=== PATIENT | female | born 1935 | race Caucasian/White ===

== ENCOUNTER 2018-03-25 15:33 | Observation (INO) ==
[2018-03-25] MEDS ORDERED: SALINE FLUSH 10ml SYRINGE IVF PRN (15:42)
--- NOTE | 2018-03-25 15:57 | CT Scan Report ---
EXAM: CT head/brain wo con HISTORY: Unilateral weakness COMPARISON: CT head dated 07/19/2011. PROCEDURE: CT images were obtained throughout the head without contrast enhancement. The current CT scan was performed using radiation dose-reduction techniques. FINDINGS: No intracranial hemorrhage or acute territorial infarct is evident. Generalized age-related cerebral is present with no evidence of a space-occupying mass or shift of midline structures. The bony calvaria are intact. The visualized paranasal sinuses and mastoid air cells are clear. The orbital contents are within normal limits. IMPRESSION: No acute intracranial process. .
--- NOTE | 2018-03-25 16:06 | Emergency Department Report ---
Neuro HPI - General Chief Complaint: Weakness Stated Complaint: L SIDED WEAKNESS Time Seen by Provider: 03/25/18 15:38 Source: patient, RN notes reviewed, old records reviewed Mode of arrival: ambulatory Limitations: no limitations - History of Present Illness HPI Narrative: 83yo woman presents to the ER for evaluation of left-sided weakness. Pt has had similar sx x3 before; these were dx'ed as TIA's. Pt has established with Dr. Heck; she was at his office earlier today. Pt then went to her dentist today ; had recurrent left-sided 'numbness' sx without weakness or dysarthria/ dysphagia at 2-2:30 today. Onset (ago): hour(s) Time: 1400 Time Estimated: Yes Location: left face, left arm, left leg History of same: Yes Severity: mild Quality: numb Relieving factors: none Exacerbating factors: none Context: sudden onset On Anticoagulants: Yes Associated symptoms: denies other symptoms Treatments Prior to Arrival: Aspirin - Related Data Home Medications: Home Medications Medication Instructions Recorded Confirmed Norvasc (amlodipine) 5 mg tablet 5 mg PO DAILY 30 Days #30 tab 03/26/17 03/25/18 Aspirin [Ecotrin] 81 mg PO DAILY 03/25/18 03/25/18 Carvedilol 3.125 mg PO BID 03/25/18 03/25/18 Duloxetine [Cymbalta] 30 mg PO DAILY 03/25/18 03/25/18 Allergies/Adverse Reactions: Allergies Allergy/AdvReac Type Severity Reaction Status Date / Time codeine Allergy Intermediate SWELLING Verified 03/25/18 13:52 acetaminophen Allergy Verified 03/25/18 13:52 amoxicillin Allergy VOMITTING Verified 03/25/18 13:52 AND DIARRHEA cyclobenzaprine Allergy Verified 03/25/18 13:52 hydrocodone Allergy Verified 03/25/18 13:52 tramadol Allergy Verified 03/25/18 13:52 propoxyphene napsylate Allergy Uncoded 03/25/18 13:52 Review of Systems All systems: reviewed and negative except as stated Neurological: Reports: as per HPI, numbness. Denies: headache, weakness, paresthesias, confusion, abnormal gait, vertigo [facility] Medical History Anxiety (Chronic Medical) High blood pressure (Chronic Medical) Right optic neuropathy (Chronic Medical) TIA (transient ischemic attack) (Chronic Medical) Surgical History: Heart cathers x3. hysterectomy. colonscopy. prolapsed bladder Family History: Family History (Last Reviewed 03/25/18 @ 13:52 by Demi Celaya [facility]) Father Lymphoma Mother Dementia - Social History Smoking status: Never smoker Substance use type: does not use Alcohol intake frequency: holidays/special occasions only Current occupational status: retired Physical Exam - Limitations Limitations: no limitations - General General appearance: alert, in no apparent distress, obese - Head Head exam: atraumatic, normocephalic, normal inspection - Eye Eye exam: Present: normal appearance, PERRL, EOMI. Absent: scleral icterus - ENT ENT exam: Present: normal exam, normal oropharynx, mucous membranes moist, normal external ear exam - Neck Neck exam: Present: normal inspection, full ROM, trachea midline. Absent: tenderness, lymphadenopathy - Chest Chest inspection: Present: normal inspection, symmetric chest wall rise. Absent : tenderness, rash - Respiratory Respiratory exam: Present: normal lung sounds bilaterally. Absent: respiratory distress, wheezes, stridor, prolonged expiratory phase, crackles - Cardiovascular Cardiovascular exam: Present: regular rate, normal rhythm, normal heart sounds. Absent: rubs, gallop, clicks - Abdominal Exam Abdominal exam: Present: soft, normal bowel sounds. Absent: distention, tenderness, guarding, rebound, rigidity - Extremities Exam Extremities exam: Present: normal inspection, full ROM, normal capillary refill. Absent: tenderness, pedal edema - Skin Skin exam: Present: warm, dry, intact. Absent: rash - Neurological Exam Neurological exam: Present: alert, oriented X3, CN II-XII intact, normal gait, reflexes normal - Expanded Neurological Exam Patient oriented to: Present: person, place, time Speech: Present: fluid speech Cranial nerves: Normal: EOM function (II, III, IV, ), facial sensation (V), facial palsy (VII), gag reflex (IX), spinal accessory function (XI), tongue deviation (XII) Cerebellar function: Normal: finger to nose, heel to story Cerebellar function: normal gait Motor strength - LUE: 5/5 Motor strength - RUE: 5/5 Motor strength - LLE: 5/5 Motor strength - RLE: 5/5 Upper motor neuron exam: Absent bilaterally: ekaterina neglect, pronator drift, Babinski sign, sensory extinction DTR: 2+: patellar (L), patellar (R) Coma scale eye opening: spontaneous Coma scale motor response: obeys commands Coma scale verbal response: oriented Coma scale total: 15 - Psychiatric Psychiatric exam: Present: normal affect, normal mood Course - Consultations Consultation #1: Hospitalist: Will admit for further eval/treatment. Time: 17:30 Vital Signs Temperature 97.9 F 03/25/18 15:30 Pulse Rate 68 03/25/18 15:30 Respiratory Rate 20 03/25/18 15:30 Blood Pressure 173/84 H 03/25/18 15:30 Pulse Oximetry 97 03/25/18 15:30 Temperature 97.9 F 03/25/18 15:46 Pulse Rate 68 03/25/18 15:46 Respiratory Rate 20 03/25/18 15:46 Blood Pressure 173/84 H 03/25/18 15:44 Pulse Oximetry 97 03/25/18 15:46 Neuro Symptoms/Deficit - Differential Diagnosis Likely: carpal tunnel syndrome, delirium, subarachnoid hemorrhage, peripheral neuropathy, cerebrovascular accident, transient cerebral ischemia - Medical Records Attestation: I reviewed the patient's medical records. - Lab Data Attestation: I reviewed the patient's lab results. Result diagrams: 03/25/18 16:21 03/25/18 16:21 - Radiology Data Attestation: I reviewed the patient's radiology results. CT Head: FINDINGS: No intracranial hemorrhage or acute territorial infarct is evident. Generalized age-related cerebral is present with no evidence of a space-occupying mass or shift of midline structures. The bony calvaria are intact. The visualized paranasal sinuses and mastoid air cells are clear. The orbital contents are within normal limits. IMPRESSION: No acute intracranial process. - EKG Data EKG #1 EKG attestation: Yes: I reviewed and interpreted this EKG. EKG shows normal: sinus rhythm, axis, intervals, ST-T waves Rate: normal [place]/QRS: RBBB Disposition Clinical Impression: TIA (transient ischemic attack) Qualifiers: Transient cerebral ischemia type: unspecified Qualified Code(s): G45.9 - Transient cerebral ischemic attack, unspecified [place]position: 02 [place] [facility] [place] Language: Malag[place] Condition: Improved Prescriptions: No Action Carvedilol 3.125 mg PO BID Aspirin [Ecotrin] 81 mg PO DAILY Duloxetine [Cymbalta] 30 mg PO DAILY Norvasc (amlodipine) 5 mg tablet 5 mg PO DAILY 30 Days #30 tab Referrals: Silvano Morris MD [Primary Care Provider] - Time of Disposition: 17:46 - Seen By: physician
[2018-03-25] MEDS ORDERED: PROCHLORPERAZINE 10 MG/2 ML INJECTION IVP PRN (18:39)
[2018-03-25 18:42] VITALS: BMI 29.8
[2018-03-25] MEDS ORDERED: BISACODYL 10 MG SUPPOSITORY RECTALLY PRN (19:52)
--- NOTE | 2018-03-25 20:01 | History & Physical Report ---
History of Present Illness Date: 03/25/18 Chief complaint: Left facial and arm numbess HPI: Mrs Forrester is an 83 y/o female who presents to [facility] ED for evaluation of left facial and arm numbness. Has been having these symptoms for about 2 years-will come and go for no apparent reason. Dose take ASA for stroke prevention. Was seen by Dr Heck today for neurological follow up-reports that she had 3 episode recently. He recommended increasing ASA to 81mg BID and scheduled MR brain and MR angiogram for head and neck. Patient had dental appointment after neurological visit. Developed another episode of numbness to face/arm. No preceding symptoms-no palpitation, nausea, sweats, diaphoresis. No other neurological changes - vision/hearing/speech normal and no difficulty moving ext. No recent trauma or injury (reports trauma to back of head about 3 months ago - but having these current symptoms before then). Has been in typical state of health-no recent illness. Breathing well. No chest pain. Appetite stable. Bowels stable. With return of symptoms, presents to ED for evaluation. CT head unremarkable. Lab unremarkable. Numbness starting to resolve in ED. Placed in OBS for further evaluation and treatment. Review of Systems - Constitutional Constitutional: Absent: anorexia, chills, headache(s) - EENMT Eyes: Absent: blurry vision, change in vision, diplopia, loss of vision, pain Ears: Absent: ear discharge, ear pain, tinnitus Balance: Absent: vertigo, ataxia - Cardiovascular Cardiovascular: Absent: chest pain, palpitations, dyspnea on exertion, edema - Respiratory Respiratory: Absent: cough, dyspnea, dyspnea on exertion, wheezing, chest congestion - Gastrointestinal Gastrointestinal: Present: constipation (Some chronic slowing of stools). Absent: abdominal pain, change in bowel habits, diarrhea, vomiting - Genitourinary Genitourinary: Absent: difficulty urinating, urinary urgency - Musculoskeletal Musculoskeletal: Absent: muscle cramps, muscle weakness, myalgias, neck pain - Neurological Neurological: Present: as per HPI. Absent: abnormal speech, dizziness, focal weakness, headache(s), loss of vision, tremor(s), vertigo, weakness - Psychiatric Psychiatric: Absent: depression, mood swings - Allergic/Immunologic Allergic/Immunologic: Absent: lip swelling Past Medical History Medical History: Medical History Anxiety High blood pressure Right optic neuropathy TIA (transient ischemic attack) Surgical History: Heart cathers x3. hysterectomy. colonscopy. prolapsed bladder Family History: Family History (Last Reviewed 03/25/18 @ 13:52 by JESUS MANUEL Walker) Father Lymphoma Mother Dementia Family History: As Above - Social History Smoking status: Never smoker Alcohol intake frequency: other (Will have 1 glass of wine daily) Current occupational status: retired Current residence: Apartment/Private Home Social history: Dr Morris PCP Medications Home Medications Medication Instructions Recorded Confirmed Type Norvasc (amlodipine) 5 mg tablet 5 mg PO DAILY 30 Days #30 tab 03/26/17 History Aspirin [Ecotrin] 81 mg PO DAILY 03/25/18 03/25/18 History Carvedilol 3.125 mg PO BID 03/25/18 03/25/18 History Duloxetine [Cymbalta] 30 mg PO DAILY 03/25/18 03/25/18 History Allergies Allergy/AdvReac Type Severity Reaction Status Date / Time codeine Allergy Intermediate SWELLING Verified 03/25/18 13:52 acetaminophen Allergy Verified 03/25/18 13:52 amoxicillin Allergy VOMITTING Verified 03/25/18 13:52 AND DIARRHEA cyclobenzaprine Allergy Verified 03/25/18 13:52 hydrocodone Allergy Verified 03/25/18 13:52 tramadol Allergy Verified 03/25/18 13:52 propoxyphene napsylate Allergy Uncoded 03/25/18 13:52 Exam Vital Signs: Temperature 96.0 F L 03/25/18 18:40 Pulse Rate 64 03/25/18 18:40 Respiratory Rate 18 03/25/18 18:40 Blood Pressure 162/88 H 03/25/18 18:40 Pulse Oximetry 98 03/25/18 18:40 Height/Weight/BMI: Height 1.6 m Weight 76.5 kg Body Mass Index 29.8 - Constitutional Present: well nourished, well developed, average body habitus, cooperative - Routine HEENT Exam Head: Present: normocephalic, atraumatic Eye: Present: EOMI, PERRL, normal accommodation ENT: Present: mucous membranes moist - Routine Neck Exam Present: supple, full ROM, trachea midline. Absent: carotid bruit - Routine Respiratory Exam Present: CTA bilaterally. Absent: rales, respiratory distress, rhonchi, stridor , wheezes, crackles - Routine Cardiovascular Exam Present: RRR, no murmur - Routine Abdominal Exam Present: soft, normoactive bowel sounds, non distended, non tender. Absent: guarding - Routine Extremities Exam Present: no edema, pulses intact. Absent: cyanosis, clubbing - Routine Skin Exam Present: intact, dry, warm. Absent: pallor, mottling - Routine Neurological Exam Present: alert, oriented X3, CN II-XII intact, moving all extremities, vision grossly intact, hearing grossly intact, facial asymmetry. Absent: motor deficit , altered mental status - Routine Psychiatric Exam Present: normal affect, normal thought process, cooperative, good insight, good judgment Results - Labs CBC & Chem 7: 03/25/18 16:21 03/25/18 16:21 Assessment and Plan (1) Numbness and tingling of left side of face Current visit: Yes Status: Acute (2) TIA (transient ischemic attack) Current visit: Yes Status: Acute Assessment and Plan: Assessment Numbness of left face and arm - improving; suspect TIA HTN AO Idiopathic neuropathy Mild chronic constipation Plan OBS at [facility] for further monitoring and treatment Tele to monitor for cardiac rhythm disturbances. Will consult with PT/OT/Speech for functional evaluation. Obtain ECHO cardiogram to help rule out embolic source. Obtain MR Brain without contrast and MR angiogram of Head and Neck without contrast as per neurology. Will initiate Plavix with ASA for stroke prevention. Check Fasting lipid profile. IVF of 1/2NS with 20KCl to help maintain hydration. Continue home medications. Discussed code status with patient. Requests DNR. Order written. Care to return to Dr Morris at time of discharge from [facility]. DVT Prophylaxis: SCD's Resuscitation Status: Do Not Resuscitate - Time spent with patient Time with patient PN: 50 minutes - Physician Narrative Physician: Gomez Hernandez MD Narrative: Date: 03/25/18 Time: 1952 Hospital Course Summary Disclaimer: The visit summary below is not to be considered part of the above Progress Note. Hospital Course: 03/25/18 OBS at [facility] for further monitoring and treatment. Tele to monitor for cardiac rhythm disturbances. Will consult with PT/OT/Speech for functional evaluation. Obtain ECHO cardiogram to help rule out embolic source. Obtain MR Brain without contrast and MR angiogram of Head and Neck without contrast as per neurology. Will initiate Plavix with ASA for stroke prevention. Check Fasting lipid profile. IVF of 1/2NS with 20KCl to help maintain hydration. Continue home medications. Discussed code status with patient. Requests DNR. Order written. Care to return to Dr Morris at time of discharge from [facility].
[2018-03-25] MEDS: CARVEDILOL 3.125 MG TABLET PO SCH (20:36)
[2018-03-25] MEDS: CLOPIDOGREL 75 MG TABLET PO SCH (20:36)
[2018-03-25] MEDS: 1/2 NS with KCL 20mEq 1,000 ML IV SCH (20:36)
[2018-03-26 07:41] VITALS: RESP 17
[2018-03-26] MEDS ORDERED: DULOXETINE 30 MG CAPSULE PO SCH (09:00)
[2018-03-26] MEDS ORDERED: AMLODIPINE 5 MG TABLET PO SCH (09:00)
[2018-03-26] MEDS ORDERED: ASPIRIN *EC* 81 MG TABLET PO SCH (09:00)
[2018-03-26] MEDS: CARVEDILOL 3.125 MG TABLET PO SCH ×2 (09:07→17:59)
[2018-03-26] MEDS: CLOPIDOGREL 75 MG TABLET PO SCH (09:07)
[2018-03-26] MEDS: 1/2 NS with KCL 20mEq 1,000 ML IV SCH (09:07)
[2018-03-26] MEDS ORDERED: GADOTERIDOL 279.3mg/ml - 15ml vial IVP ONE (12:18)
[2018-03-26] MEDS ORDERED: NS 50 ML ONE (12:18)
[2018-03-26] MEDS ORDERED: SALINE FLUSH 10ml SYRINGE ONE (12:18)
--- NOTE | 2018-03-26 15:02 | Magnetic Resonance Report ---
Indication: TIAs MR head/brain/ang head wo con: Comparison: MRI head 03/25/2018 Technique: Patient is scanned T1 and T2-weighted image sequences as well as with the [id number] MRA imaging of the [place]. Findings: Patient demonstrates only visualized flow in the left vertebral on the images provided. No occlusive change identified in the anterior circulation. A1 and M1 segments are visualized. Posterior circulation showed both posterior inferior cerebellar arteries visualized. No stenosis identified in either carotid siphon region. Intracranial imaging shows generalized atrophy and deep white matter changes. The diffusion weighted image sequences did not suggest recent vascular insult. FLAIR sequence T2-weighted imaging showed moderate deep white matter small vessel changes bilaterally with slightly greater on the right. No suggestion of recent hemorrhage or mass effect is seen. Patient shows generalized atrophy and deep white matter changes slightly greater in the centrum some mild volume the right. No definitive flow in the right vertebral artery. Evaluation of the neck perhaps with carotid ultrasound may be worthwhile to see if there is visualized right vertebral flow. No acute intracranial findings were identified. The anterior circulation was intact with A1 and M1 segments both well visualized. No marked asymmetry and the lenticulostriate vessels appreciated. Impression: 1. Chronic deep white matter changes and generalized atrophy without suggestion of acute vascular insult. The diffusion weighted images showed no recent stroke. 2. Patient showed what appear to be dominant flow in the left vertebral with no good clear visualization of the right vertebral on the images provided. Ultrasound evaluation the neck may be a consideration to assess the carotid and vertebral flow. 3. No acute intracranial anterior circulation abnormality appreciated. .
--- NOTE | 2018-03-26 15:10 | Echocardiogram ---
DATE OF PROCEDURE: March 26, 2018 REFERRING PHYSICIAN: Dr. Gomez Hernandez This is a two-dimensional echo with spectral Doppler, color-flow and M-mode. It was obtained in a patient with possible TIA. Left atrial dimension is normal. Left ventricle end-diastolic dimension is normal. Left ventricle wall thickness is normal. LV systolic function is normal with ejection fraction of 70%. Right atrium is normal. Right ventricle is normal. Aortic root dimension is normal. Mitral valve is morphologically normal with mild mitral regurgitation. Aortic valve is a trileaflet structure with no stenosis. Mild aortic insufficiency is present. Tricuspid valve shows mild tricuspid regurgitation with normal estimated pulmonary artery systolic pressure of 28. Pulmonary valve shows no pulmonary insufficiency. There is no pericardial effusion. Grossly there is no intracardiac thrombus or mass. IMPRESSION 1. Normal LV systolic function with ejection fraction of about 70%. 2. Mild aortic insufficiency. 3. Mild tricuspid regurgitation with normal estimated pulmonary artery systolic pressure of 28. 4. Mild mitral regurgitation. 5. Grossly no intracardiac thrombus or mass. [facility]
[2018-03-26 15:12] VITALS: BP 146/67; O2SAT 95
[2018-03-26 16:16] VITALS: TEMP 95.6
--- NOTE | 2018-03-26 16:51 | Progress Note ---
- Date 03/26/18 Subjective: F/U: Left sided facial/arm numbness - TIA Doing well today. Symptoms resolved and not returned. Breathing well. Eating well. Tolerated procedures. Objective Vital signs: Temperature 95.6 F L 03/26/18 15:11 Pulse Rate 68 03/26/18 15:11 Respiratory Rate 17 03/26/18 15:11 Blood Pressure 146/67 H 03/26/18 15:11 Pulse Oximetry 95 03/26/18 15:11 Height/Weight/BMI: Height 1.6 m Weight 77.3 kg Body Mass Index 29.8 - Constitutional Present: no acute distress, well nourished, well developed, average body habitus , cooperative - Routine HEENT Exam Head: Present: normocephalic, atraumatic Eye: Present: EOMI, PERRL ENT: Present: mucous membranes moist - Routine Respiratory Exam Present: CTA bilaterally. Absent: respiratory distress, rhonchi, stridor, wheezes, crackles - Routine Cardiovascular Exam Present: RRR, no murmur - Routine Abdominal Exam Present: soft, normoactive bowel sounds, non distended, non tender. Absent: guarding - Routine Extremities Exam Present: no edema, pulses intact. Absent: cyanosis, clubbing - Routine Musculoskeletal Exam Musculoskeletal: Present: no clubbing or cyanosis, normal strength - Routine Skin Exam Present: intact, dry, warm - Routine Neurological Exam Present: alert, oriented X3, CN II-XII intact, moving all extremities, vision grossly intact, hearing grossly intact, normal speech. Absent: motor deficit, altered mental status - Routine Psychiatric Exam Present: normal affect, normal thought process, cooperative Results - Labs CBC & Chem 7: 03/26/18 04:06 03/26/18 04:06 Assessment and Plan (1) Numbness and tingling of left side of face Current visit: Yes Status: Acute (2) TIA (transient ischemic attack) Current visit: Yes Status: Acute Assessment and Plan: Assessment Numbness of left face and arm - improving; suspect TIA HTN AO Idiopathic neuropathy Mild chronic constipation Plan Clinically doing well. No recurrence of symptoms or other neurological problems developed. MR Brain not showing evidence for acute stroke. MR angiogram pending. ECHO without significant finding. Lipid profile reviewed with patient - Normal. Did discuss about addition of statin medication (simvastatin 40mg night) for CV protection. Discussed possible side effects. Will defer initiation of statin to PCP. Discussed MR finding with Dr Heck (who reviewed them). He does concur with Plavix over ASA to help decreased CV risk. As medically stable, will discharge to home. Plavix 75mg daily in place of ASA. Continue prior home medications. F/U with Dr Morris in 1 week. See orders for details. Case discussed with Dr Heck & Dr Morris. Time spent with care and discharge greater than 30 minutes. DVT Prophylaxis: SCD's Resuscitation Status: Do Not Resuscitate - Physician Narrative Physician: Gomez Hernandez MD Narrative: Date: 03/26/18 Time: 1649 Hospital Course Summary Disclaimer: The visit summary below is not to be considered part of the above Progress Note. Hospital Course: 03/25/18 OBS at [facility] [place] further monitoring and treatment. Tele to monitor for cardiac rhythm disturbances. Will consult with PT/OT/Speech for functional evaluation. Obtain ECHO cardiogram to help rule out embolic source. Obtain MR Brain without contrast and MR angiogram of Head and Neck without contrast as per neurology. Will initiate Plavix with ASA for stroke prevention. Check Fasting lipid profile. IVF of 1/2NS with 20KCl to help maintain hydration. Continue home medications. Discussed code status with patient. Requests DNR. Order written. Care to return to Dr Morris at time of discharge from [facility]. 03/26/18 Clinically doing well. No recurrence of symptoms or other neurological problems developed. MR Brain not showing evidence for acute stroke. MR angiogram pending. ECHO without significant finding. Lipid profile reviewed with patient - Normal. Did discuss about addition of statin medication (simvastatin 40mg night) for CV protection. Discussed possible side effects. Will defer initiation of statin to PCP. Discussed MR finding with Dr Heck (who reviewed them). He does concur with Plavix over ASA to help decreased CV risk. As medically stable, will discharge to home. Plavix [address]mg [address] of ASA. Continue prior home medications. F/U with Dr Morris in 1 week. See orders for details.
[2018-03-26 16:55] VITALS: PULSE 66
--- NOTE | 2018-03-26 17:13 | Discharge Summary ---
Discharge Information Date of admission: 03/25/18 18:09 Anticipated date of discharge: 03/26/18 Attending Physician: Gomez Hernandez MD Primary care physician: Silvano Morris MD Consults: PT/OT/Speech - Discharge Diagnosis (1) Numbness and tingling of left side of face Status: Acute (2) TIA (transient ischemic attack) Status: Acute Discharge diagnosis Numbness of left face and arm - improving; suspect TIA Associated conditions and complications HTN Osteoarthritis Idiopathic neuropathy Mild chronic constipation - Procedures Procedures: Date of Exam: 03/26/18 Type of Exam: US ECHO Doppler complete Left atrial dimension is normal. Left ventricle end-diastolic dimension is normal. Left ventricle wall thickness is normal. LV systolic function is normal with ejection fraction of 70%. Right atrium is normal. Right ventricle is normal. Aortic root dimension is normal. Mitral valve is morphologically normal with mild mitral regurgitation. Aortic valve is a trileaflet structure with no stenosis. Mild aortic insufficiency is present. Tricuspid valve shows mild tricuspid regurgitation with normal estimated pulmonary artery systolic pressure of 28. Pulmonary valve shows no pulmonary insufficiency. There is no pericardial effusion. Grossly there is no intracardiac thrombus or mass. IMPRESSION 1. Normal LV systolic function with ejection fraction of about 70%. 2. Mild aortic insufficiency. 3. Mild tricuspid regurgitation with normal estimated pulmonary artery systolic pressure of 28. 4. Mild mitral regurgitation. 5. Grossly no intracardiac thrombus or mass. - Laboratory Labs: Admit Lab 03/25/18 16:21 WBC 6.8 Hgb 14.5 Hct 42.5 MCV 92.6 Plt Count 146 Neut % (Auto) 60.4 Lymph % (Auto) 30.2 [place] % (Auto) 7.4 Eos % (Auto) 1.6 Baso % (Auto) 0.3 Admit Lab 03/25/18 16:21 Sodium 145 Potassium 3.7 Chloride 111 H Carbon Dioxide 21 L Anion Gap 13 BUN 23.0 H Creatinine 0.5 L GFR Calculation 118 BUN/Creatinine Ratio 46 H Glucose 91 Calculated Osmolality 283 H Calcium 9.8 Total Bilirubin 0.50 AST 24 ALT 17 Alkaline Phosphatase 81 Total Protein 7.5 Albumin 4.2 Globulin 3.3 Albumin/Globulin Ratio 1.3 Specimen Hemolysis < 15 Lipid Profile 03/26/18 04:06 Triglycerides 157 H Cholesterol 112 L LDL Cholesterol, Calc 36.6 L VLDL Cholesterol 31.4 H HDL Cholesterol 44 Cholesterol/HDL Ratio 2.5 03/26/18 04:06 03/26/18 04:06 - Radiology Radiology: Date of Exam: 03/25/18 Type of Exam: CT head/brain wo con FINDINGS: No intracranial hemorrhage or acute territorial infarct is evident. Generalized age-related cerebral is present with no evidence of a space- occupying mass or shift of midline structures. The bony calvaria are intact. The visualized paranasal sinuses and mastoid air cells are clear. The orbital contents are within normal limits. IMPRESSION: No acute intracranial process. Date of Exam: 03/26/18 Type of Exam: MR head/brain/ang head wo con Findings: Patient demonstrates only visualized flow in the left vertebral on the images provided. No occlusive change identified in the anterior circulation. A1 and M1 segments are visualized. Posterior circulation showed both posterior inferior cerebellar arteries visualized. No stenosis identified in either carotid siphon region. Intracranial imaging shows generalized atrophy and deep white matter changes. The diffusion weighted image sequences did not suggest recent vascular insult. FLAIR sequence T2-weighted imaging showed moderate deep white matter small vessel changes bilaterally with slightly greater on the right. No suggestion of recent hemorrhage or mass effect is seen. Patient shows generalized atrophy and deep white matter changes slightly greater in the centrum some mild volume the right. No definitive flow in the right vertebral artery. Evaluation of the neck perhaps with carotid ultrasound may be worthwhile to see if there is visualized right vertebral flow. No acute intracranial findings were identified. The anterior circulation was intact with A1 and M1 segments both well visualized. No marked asymmetry and the lenticulostriate vessels appreciated. Impression: 1. Chronic deep white matter changes and generalized atrophy without suggestion of acute vascular insult. The diffusion weighted images showed no recent stroke. 2. Patient showed what appear to be dominant flow in the left vertebral with no good clear visualization of the right vertebral on the images provided. Ultrasound evaluation the neck may be a consideration to assess the carotid and vertebral flow. 3. No acute intracranial anterior circulation abnormality appreciated. Date of Exam: 03/26/18 Type of Exam: MR Neck Angiogram Pending at discharge. History of Present Illness HPI: Mrs Forrester is an 83 y/o female who presents to [facility] ED for evaluation of left facial and arm numbness. Has been having these symptoms for about 2 years-will come and go for no apparent reason. Dose take ASA for stroke prevention. Was seen by Dr Heck today for neurological follow up-reports that she had 3 episode recently. He recommended increasing ASA to 81mg BID and scheduled MR brain and MR angiogram for head and neck. Patient had dental appointment after neurological visit. Developed another episode of numbness to face/arm. No preceding symptoms-no palpitation, nausea, sweats, diaphoresis. No other neurological changes - vision/hearing/speech normal and no difficulty moving ext. No recent trauma or injury (reports trauma to back of head about 3 months ago - but having these current symptoms before then). Has been in typical state of health-no recent illness. Breathing well. No chest pain. Appetite stable. Bowels stable. With return of symptoms, presents to ED for evaluation. CT head unremarkable. Lab unremarkable. Numbness starting to resolve in ED. Placed in OBS for further evaluation and treatment. For complete details of the H&P refer to that document. Objective Vital signs: Temperature 95.6 F L 03/26/18 15:11 Pulse Rate 66 03/26/18 16:00 Respiratory Rate 17 03/26/18 15:11 Blood Pressure 146/67 H 03/26/18 15:11 Pulse Oximetry 95 03/26/18 15:11 Height/Weight/BMI: Height 1.6 m Weight 77.3 kg Body Mass Index 29.8 Hospital Course This is a general summary of the patient's hospital course. For more details refer to the complete medical record. Hospital course: 03/25/18 OBS at [facility] for further monitoring and treatment. Tele to monitor for cardiac rhythm disturbances. Will consult with PT/OT/Speech for functional evaluation. Obtain ECHO cardiogram to help rule out embolic source. Obtain MR Brain without contrast and MR angiogram of Head and Neck without contrast as per neurology. Will initiate Plavix with ASA for stroke prevention. Check Fasting lipid profile. IVF of 1/2NS with 20KCl to help maintain hydration. Continue home medications. Discussed code status with patient. Requests DNR. Order written. Care to return to Dr Morris at time of discharge from [facility]. 03/26/18 Clinically doing well. No recurrence of symptoms or other neurological problems developed. MR Brain not showing evidence for acute stroke. MR angiogram pending. ECHO without significant finding. Lipid profile reviewed with patient - Normal. Did discuss about addition of statin medication (simvastatin 40mg night) for CV protection. Discussed possible side effects. Will defer initiation of statin to PCP. Discussed MR finding with Dr Heck (who reviewed them). He does concur with Plavix over ASA to help decreased CV risk. As medically stable, will discharge to home. Plavix 75mg daily in place of ASA. Continue prior home medications. F/U with Dr Morris in 1 week. See orders for details. Time spent with patient: discharge greater than 30 minutes Resuscitation Status: Do Not Resuscitate Discharge Plan - Discharge Disposition Discharge Date: 03/26/18 Disposition: Discharged Home, Self-Care *Condition: Improved Reason For Visit (Visit label in EMR): Left arm face numbeness ? TIA - Discharge Medications *Discharge Medications: New Clopidogrel [Plavix] 75 mg PO DAILY #30 tab Continue Carvedilol 3.125 mg PO BID Duloxetine [Cymbalta] 30 mg PO DAILY Norvasc (amlodipine) 5 mg tablet 5 mg PO DAILY 30 Days #30 tab Discontinued Aspirin [Ecotrin] 81 mg PO DAILY - Discharge Packet/Instructions *Diet: Low sodium, heart healthy diet *Activity: As tolerated *Pain Management/Treatment: Continue prior home pain medications *Wound Care: N/A Additional Instructions: Use Plavix in place of ASA *Expected Signs/Symptoms: Decreased frequency of these event. *Notify Physician if: Temp >100.4. New neurological changes. *During Business Hours Contact: Dr Morris *After Business Hours Contact: Call [facility] and have Dr Morris contacted *Pending Lab/Results: Follow up w/your PCP (MR angiogram of neck) - Referrals/Follow Up *Referrals/Follow Up: Silvano Morris MD [Primary Care Provider] - 1 Week (Hospital F/U for TIA - Consider starting Statin for CV protection (Lipid profile not bad); MR angiogram pending ) - Patient Handouts - Dismissal Complete Discharge Instructions are:: Complete Physician Narrative - Narrative Physician: Gomez Hernandez MD Attestation Narrative: Date: 03/26/18 Time: 1710 I have independently interviewed and examined patient prior to discharge. See my progress note for details. Medically stable for discharge to home.
--- NOTE | 2018-03-26 17:23 | Magnetic Resonance Report ---
Indication: TIAs MR angio neck wo/w con: Comparison: MRI head earlier in the day Technique: Patient shows [id number] imaging of the mid chest all the way up to above the [place] Findings:. Either very small or no flow in the right vertebral. Dominant flow is identified in the left vertebral which goes on to form the basilar. Both carotids are well demonstrated showing no suggestion of hemodynamically significant narrowing. No dissections or occlusions are seen. Flow through the carotid siphons and A1 and M1 segments seemed unremarkable. Origins of the great vessels are unremarkable. Both subclavian seemed unremarkable. Impression 1. As mentioned on the previous studies patient shows dominant flow in the left vertebral with no significant contribution identified from the right vertebral. 2. No stenosis or occlusions identified in the carotid circulation. .
== END 2018-03-26 17:50 | disposition home or self-care (01) ==
LOC: EDHOLD 15:33 → ED 15:33 → MED 18:25
PROVIDERS: ADMIT Hospitalist; ATTEND Hospitalist